=== PATIENT | female | born 1965 | race Caucasian/White ===

== ENCOUNTER 2022-09-06 18:34 | Emergency (ER) | payer OTHER, SELFPAY ==
[2022-09-06 18:43] VITALS: BP 156/101; PULSE 96; RESP 16; TEMP 36.4; O2SAT 100
--- NOTE | 2022-09-06 19:47 | ED.DENTAL ---
HPI - Dental/Oral General Chief complaint: Dental/Oral Stated complaint: Toothache Source: patient Mode of arrival: ambulatory Limitations: no limitations History of Present Illness HPI Narrative: Patient presents for evaluation of left lower dental pain. She indicates her symptoms essentially started today. She rates her pain 8 out of 10 in severity. She believes the left side of her jaw is swollen. No fever, chills, nausea, vomiting. She tried taking Excedrin and used Orajel. These have been ineffective. She is wondering what other therapies may be helpful. She states she has some bridge work down on the left lower side of her mouth. Related Data Home Medications Medication Instructions Recorded Confirmed pravastatin 40 mg tablet 40 mg PO DAILY 09/06/22 09/06/22 valacyclovir 1 gram tablet 1,000 mg PO DAILY 09/06/22 09/06/22 Allergies Allergy/AdvReac Type Severity Reaction Status Date / Time Sulfa (Sulfonamide Allergy Rash Verified 09/06/22 18:50 Antibiotics) Review of Systems Review of Systems: CONSTITUTIONAL: Denies fever, chills, or sweats. EYES: Denies visual changes, redness, or discharge. ENT: Reports left lower dental pain. Denies rhinorrhea, congestion, sore throat, or otalgia. CARDIOVASCULAR: Denies chest pain, palpitations, or edema. RESPIRATORY: Denies cough or dyspnea. GASTROINTESTINAL: Denies abdominal pain, nausea, vomiting, or diarrhea. GENITOURINARY: Denies dysuria or hematuria. SKIN: Denies rash or itching. MUSCULOSKELETAL: Denies back pain, joint pain, or myalgia. NEUROLOGIC: Denies headache, numbness, dizziness, or weakness. PSYCHIATRIC: Denies anxiety or depression. [facility] Past Medical History Medical History History of lymphoma Surgical History Surgical History No pertinent past surgical history Family History Family History Mother Family history non-contributory Social History Social History Substance use: never Living arrangements: with family Gender identity (if verbalized by the patient): Female Spiritual care concerns: No Exam Narrative: GENERAL: Well-appearing, well-nourished, and in no acute distress. HEAD: Normocephalic, atraumatic. EYES: PERRLA and EOMI. ENT: Nares clear, no rhinorrhea or epistaxis. Mucous membranes moist. Oropharynx without tonsillar hypertrophy exudate or other lesions. No visible or palpable dental abscess. Bilateral TMs pearly davalos nonbulging NECK: Supple. No adenopathy or masses. No carotid bruits or JVD CHEST: Clear to auscultation. No respiratory distress. No wheezes rales or rhonchi HEART: Regular rate and rhythm. No murmur heard. Normal peripheral pulses. ABDOMEN: Soft, nontender, nondistended, normal active bowel sounds. EXTREMITIES: Normal range of motion. No edema. SKIN: Warm, dry, no rash. NEURO: No focal deficits. Alert and oriented x3. PSYCH: Normal mood and affect. Course Course Emergency Course: This is a 49-year-old female presents for evaluation of left lower dental pain. Do not appreciate an abscess on exam. Will cover with some antibiotics in the event that she has an early infection. Will discharge home with tramadol. She was provided with a paper script as I am not able to e-scribe due to IT issue. Follow up with dentist. Go to ER for worsening symptoms. Pt in agreement with plan of care. Level of Care: Express Care Visit Vital Signs Vital signs: Vital Signs Temperature 36.4 C 09/06/22 18:43 Pulse Rate 96 09/06/22 18:43 Respiratory Rate 16 09/06/22 18:43 Blood Pressure 156/101 H 09/06/22 18:43 Pulse Oximetry 100 09/06/22 18:43 Oxygen Delivery Room Air 09/06/22 18:43 Temperature 36.4 C 09/06/22 18:43 Pulse Rate 96 09/06/22 18:43
== END 2022-09-06 19:30 | disposition home or self-care (01) ==
PROVIDERS: Emergency Provider Nurse Practitioner
DX: K08.89 Other specified disorders of teeth and supporting structures (principal); Z85.72 Personal history of non-Hodgkin lymphomas
CPT/HCPCS: 99213; G0463